=== PATIENT | female | born 1985 | race Caucasian/White ===

== ENCOUNTER 2018-08-01 23:12 | Emergency (ER) | payer BC ==
[2018-08-01] MEDS ORDERED: ONDANSETRON ODT 4 MG TABLET TL STA (23:47)
[2018-08-01] MEDS ORDERED: HYDROmorphone 1 MG/ML CARPUJECT IM STA (23:47)
[2018-08-02] MEDS ORDERED: HYDROmorphone 1 MG/ML CARPUJECT IM STA (00:27)
[2018-08-02] MEDS ORDERED: SILVER SULFADIAZINE CREAM 25 GM TUBE TOP STA (01:05)
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
[2018-08-02] MEDS ORDERED: oxyCODONE/ACET 5/325 Prepack 4 PO STA (03:20)
[2018-08-02 03:40] VITALS: BP 122/72
== END 2018-08-02 03:40 | disposition home or self-care (01) ==
LOC: ED 23:12
DX: T24.331A Burn of third degree of right lower leg, initial encounter (principal); T23.351A Burn of third degree of right palm, initial encounter; T24.111A Burn of first degree of right thigh, initial encounter; T23.221A Burn of second degree of single right finger (nail) except thumb, initial encounter; T31.0 Burns involving less than 10% of body surface; X03.3XXA Fall due to controlled fire, not in building or structure, initial encounter; F10.120 Alcohol abuse with intoxication, uncomplicated; F17.200 Nicotine dependence, unspecified, uncomplicated
CPT/HCPCS: 96372; 99283; A9270; J1170; Q0162